=== PATIENT | male | born 1980 | race Caucasian/White ===

== ENCOUNTER 2019-01-26 10:18 | Observation (INO) ==
[2019-01-26 11:03] LABS: BILIRUBIN URINE NEGATIVE (NEGATIVE); BLOOD URINE NEGATIVE (NEGATIVE); CLARITY CLEAR (CLEAR); COLOR YELLOW; GLUCOSE URINE NEGATIVE (NEGATIVE); KETONE URINE NEGATIVE (NEGATIVE); LEUKOCYTES URINE NEGATIVE (NEGATIVE); NITRITE URINE NEGATIVE (NEGATIVE); PROTEIN URINE NEGATIVE (NEGATIVE); SP GRAVITY URINE 1.015; UROBILINOGEN URINE NORMAL
[2019-01-26 11:06] LABS: BASO# 0.01 X1000 (0.0-0.2); BASO% 0.2 % (0.0-0.8); EOS# 0.05 X1000 (0.0-0.7); EOS% 0.9 % (0.0-10.0); HEMATOCRIT 40.1 % (42.0-52.0); HEMOGLOBIN 13.4 g/dL (14.0-18.0); IMM GRAN# 0.01 X1000 (0.0-0.04); IMM GRAN% 0.2 % (0.0-0.5); LYMPH# 0.64 X1000 (1.2-3.4); LYMPH% 11.5 % (20.5-51.1); MCH 29.4 PG (27-31); MCHC 33.4 g/dL (33-37); MCV 87.9 FL (81-99); MONO# 0.49 X1000 (0.11-0.59); MONO% 8.8 % (1.7-9.3); MPV 12.9 FL (7.4-10.4); NEUT# 4.36 X1000 (1.4-6.5); NEUT% 78.4 % (42.2-75.2); PLT 114 X1000 (130-400); RBC 4.56 XMIL (4.7-6.1); RDW 13.3 % (11.5-14.5); WBC 5.56 X1000 (4.8-10.8)
[2019-01-26 11:10] LABS: UR AMPHETAMINES QUAL NONE DETECTED (NONE DETECT); UR BARBITUATES QUAL NONE DETECTED (NONE DETECT); UR BENZODIAZEPIN QUAL NONE DETECTED (NONE DETECT); UR CANNABINOIDS QUAL NONE DETECTED (NONE DETECT); UR COCAINE QUAL NONE DETECTED (NONE DETECT); UR METHADONE QUAL NONE DETECTED (NONE DETECT); UR METHAMPHETAMINE QUAL NONE DETECTED (NONE DETECT); UR OPIATES QUAL NONE DETECTED (NONE DETECT); UR OXYCODONE QUAL NONE DETECTED (NONE DETECT); UR PCP QUAL NONE DETECTED (NONE DETECT); UR PROPOXYPHENE QUAL NONE DETECTED (NONE DETECT); UR TCA QUAL NONE DETECTED (NONE DETECT)
[2019-01-26 11:15] LABS: URINE SOURCE CLEAN CATCH
[2019-01-26 11:16] LABS: URINE BACTERIA 1+ /HFP; URINE EPITHELIAL CELLS <10 /HPF (<10); URINE WBC <10 /HPF (<10)
[2019-01-26 11:17] LABS: AGAP 12; ALBUMIN 4.6 g/dL (3.5-5.0); ALKALINE PHOSPHATASE 75 U/L (32-122); BUN 22 mg/dL (8-22); CALCIUM 7.8 mg/dL (8.8-10.2); CHLORIDE 101 mmol/L (98-107); COSMO 276; CREATININE 0.9 mg/dL (0.7-1.2); ESTIMATED GFR > 60; GLUCOSE 118 mg/dL (70-104); GOT 15 U/L (10-34); GPT 21 U/L (10-44); POTASSIUM 4.3 mmol/L (3.5-5.1); SODIUM 136 mmol/L (136-145); TCO2 23 mmol/L (25-35); TOTAL PROTEIN 7.5 g/dL (6.3-8.3)
[2019-01-26 11:18] LABS: ACETONE SERUM NEGATIVE (NEGATIVE)
--- NOTE | 2019-01-26 11:20 | Diag Imaging Result Doc PS360 ---
EXAM: CT HEAD W/O CONTRAST HISTORY: 1st seizure in many years TECHNIQUE: Images were obtained from the skull base to vertex without IV contrast as per standard protocol. COMPARISON: None. FINDINGS: There is no evidence for hemorrhage, hydrocephalus, mass effect, or fluid collection. Calvarium is intact. An incidental cleft is noted posterior arch of C1. IMPRESSION: No acute intracranial abnormality is appreciated. This exam was performed using automated exposure control, adjustment of mA or kV according to patient size, and/or use of iterative reconstruction technique. Electronically signed by Zamzam Ramos 01/26/2019 11:18 AM
--- NOTE | 2019-01-26 13:20 | PROVIDER DOCUMENTATION ---
This chart was entered by Scarlet Wiggins Scribe, acting as scribe for Candido Albert MD. HPI-Neurological Disorder - General Chief Complaint: Seizure Stated Complaint: seizure Time Seen by Provider: 01/26/19 10:18 Source: patient, EMS Allergies/Adverse Reactions: Patient Allergies Allergy/AdvReac Type Severity Reaction Status Date / Time No Known Allergies Allergy Verified 03/22/17 13:09 Home Medications: Home Medication List Medication Instructions Recorded Confirmed Last Taken Type Cyclosporine, Modified 03/22/17 Unknown History [Cyclosporine Modified] Losartan/Hydrochlorothiazide 1 tab PO 03/22/17 Unknown History [Losartan-Hctz 100-25 mg Tab] - History of Present Illness-Neuro Nature of Presenting Problem: Patient is a 38 year old male who presents to the ED via EMS with seizure like activity. EMS states patient had a seizure prior to arrival. EMS states patient stated having chest pain that radiated down right arm prior to the seizure activity. Patient states history of seizure but has not had a seizure in "years ". Patient denies taking seizure medication. 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 Patient does not report shortness of breath or headache. Severity: reports: mild Onset/Duration: reports: other (prior to arrival) Timing: reports: improving Context: reports: seizure activity Cognitive Baseline: alert, oriented x3 Gait Baseline: walks without assistance Associated Symptoms: reports: chest pain Similar Symptoms Previously?: No Recently seen or treated by another doctor?: No - Seizure First time to have a seizure?: No Witnessed seizure?: Yes Episode details: reports: unknown duration, unknown number Episode Frequency: rare episodes Review of Systems - Adult - REVIEW OF SYSTEMS - ADULT Constitutional: reports: no symptoms reported Eyes: reports: no symptoms reported Ears, Nose, Mouth & Throat: reports: no symptoms reported Cardiovascular: reports: chest pain. denies: heart murmur, irregular heart rate Respiratory: reports: no symptoms reported Gastrointestinal: reports: no symptoms reported Genitourinary: reports: no symptoms reported Musculoskeletal: reports: no symptoms reported Integumentary: reports: no symptoms reported Neurological: reports: seizure. denies: dizziness/vertigo, headache/migraines, numbness, syncope Psychiatric: reports: no symptoms reported Endocrine: reports: no symptoms reported Hematologic/Lymphatic: reports: no symptoms reported Allergic/Immunologic: reports: no symptoms reported All Other Systems: Reviewed and Negative Past History - Adult - PAST MEDICAL HISTORY-ADULT Review of Records: reports: Nursing Assessment Review, Medications Reviewed, Social history reviewed & non-contributory. Major Childhood Illnesses: reports: denies history Cardiovascular: reports: HTN Respiratory: reports: denies history Gastrointestinal: reports: denies history Obstetrical/Gynecological: reports: denies history Genitourinary: reports: denies history Musculoskeletal: reports: denies history Neurological: reports: Seizures/Epilepsy Psychiatric: reports: denies history Endocrine/Immune: reports: denies history Other Conditions: reports: denies history - PRIOR SURGERIES/PROCEDURES Surgical/Procedure History: reports: reviewed, not pertinent - IMMUNIZATION STATUS Childhood Immunizations: See Nurse Assessment Flu Vaccine: See Nurse Assessment - FAMILY HISTORY Family History: reviewed, not pertinent - SOCIAL HISTORY Smoking: denies Substance Use: denies Physical Exam- Neurological - Physical Exam-Neuro Initial Vital Signs Reviewed: Yes General Appearance: alert, no apparent distress HENMT: normal ENT inspection Head Injury: no evidence of injury Respiratory: chest non-tender, lungs clear, normal breath sounds Cardiovascular: normal peripheral pulses, regular rate, rhythm Abdominal Exam: normal bowel sounds, non tender, soft Extremity: normal inspection firefighter type one Exam: normal hearing, normal speech Neurologic: grossly normal, other (sluggish and post-ictal here 1st 10 min.). negative: facial droop, focal weakness, motor weakness, sensory deficit Integumentary: normal color, normal turgor, warm/dry Psych/Mental Status: normal mood/affect, oriented x 3 - Glascow Coma Scale Best Eye Response: (4) open spontaneously Best Verbal Response: (5) oriented Best Motor Response: (6) obeys commands Total Glascow Score: 15 Progress - PLAN OF CARE/RESULTS Progress/Plan/Lab Results: Vital Signs - 8 hr 01/26/19 10:18 01/26/19 10:25 01/26/19 10:42 Temperature 98.9 F Pulse Rate 80 Respiratory Rate 18 Blood Pressure 178/93 O2 Sat by Pulse Oximetry 100 01/26/19 11:57 01/26/19 12:47 Temperature Pulse Rate 79 74 Respiratory Rate 17 20 Blood Pressure 155/88 141/88 O2 Sat by Pulse Oximetry 97 95 Laboratory Results - last 24 hr 01/26/19 01/26/19 01/26/19 10:40 10:40 10:52 WBC RBC Hgb Hct MCV MCH MCHC RDW Std Deviation Plt Count MPV Immature Gran % (Auto) Neut % (Auto) Lymph % (Auto) [place] % (Auto) Eos % (Auto) Baso % (Auto) Immature Gran # (Auto) Neut # (Auto) Lymph # (Auto) [place] # (Auto) Eos # (Auto) Baso # (Auto) Sodium 136 Potassium 4.3 Chloride 101 Carbon Dioxide 23 L Anion Gap 12 BUN 22 Creatinine 0.9 Estimated GFR/1.73 m2 > 60 BUN/Creatinine Ratio 24 Glucose 118 H Calculated Osmolality 276 Calcium 7.8 L Magnesium Total Bilirubin 0.70 AST 15 ALT 21 Alkaline Phosphatase 75 Troponin T Total Protein 7.5 Albumin 4.6 Globulin 3.0 Albumin/Globulin Ratio 2.0 Plasma Lactate Urine Source CLEAN CATCH Urine Color YELLOW Urine Clarity CLEAR Urine pH 5.0 Ur Specific [place] 1.015 Urine Protein NEGATIVE Urine Ketones NEGATIVE Urine Blood NEGATIVE Urine Nitrite NEGATIVE Urine Bilirubin NEGATIVE Urine Urobilinogen NORMAL Urine Microscopic RBC Not Reportable Urine WBC NEGATIVE Urine Microscopic WBC <10 Ur Epithelial Cells <10 Urine Bacteria 1+ Urine Glucose NEGATIVE Urine Opiates Screen NONE DETECTED Ur Oxycodone Screen NONE DETECTED Urine Methadone Screen NONE DETECTED U Propoxyphene Qual NONE DETECTED Ur Barbituates Screen NONE DETECTED Ur Tricyclics Screen NONE DETECTED Ur Phencyclidine Scrn NONE DETECTED Ur Amphetamines Screen NONE DETECTED U Methamphetamines Scrn NONE DETECTED U Benzodiazepines Scrn NONE DETECTED Urine Cocaine Screen NONE DETECTED U Cannabinoids Screen NONE DETECTED Acetone Level NEGATIVE 01/26/19 01/26/19 01/26/19 10:52 10:52 10:52 WBC 5.56 RBC 4.56 L Hgb 13.4 L Hct 40.1 L MCV 87.9 MCH 29.4 MCHC 33.4 RDW Std Deviation 13.3 Plt Count 114 L MPV 12.9 H Immature Gran % (Auto) 0.2 Neut % (Auto) 78.4 H Lymph % (Auto) 11.5 L [place] % (Auto) 8.8 Eos % (Auto) 0.9 Baso % (Auto) 0.2 Immature Gran # (Auto) 0.01 Neut # (Auto) 4.36 Lymph # (Auto) 0.64 L [place] # (Auto) 0.49 Eos # (Auto) 0.05 Baso # (Auto) 0.01 Sodium Potassium Chloride Carbon Dioxide Anion Gap BUN Creatinine Estimated GFR/1.73 m2 BUN/Creatinine Ratio Glucose Calculated Osmolality Calcium Magnesium 1.7 Total Bilirubin AST ALT Alkaline Phosphatase Troponin T Total Protein Albumin Globulin Albumin/Globulin Ratio Plasma Lactate 1.1 Urine Source Urine Color Urine Clarity Urine pH Ur Specific [place] Urine Protein Urine Ketones Urine Blood Urine Nitrite Urine Bilirubin Urine Urobilinogen Urine Microscopic RBC Urine WBC Urine Microscopic WBC Ur Epithelial Cells Urine Bacteria Urine Glucose Urine Opiates Screen Ur Oxycodone Screen Urine Methadone Screen U Propoxyphene Qual Ur Barbituates Screen Ur Tricyclics Screen Ur Phencyclidine Scrn Ur Amphetamines Screen U Methamphetamines Scrn U Benzodiazepines Scrn Urine Cocaine Screen U Cannabinoids Screen Acetone Level 01/26/19 10:52 WBC RBC Hgb Hct MCV MCH MCHC RDW Std Deviation Plt Count MPV Immature Gran % (Auto) Neut % (Auto) Lymph % (Auto) [place] % (Auto) Eos % (Auto) Baso % (Auto) Immature Gran # (Auto) Neut # (Auto) Lymph # (Auto) [place] # (Auto) Eos # (Auto) Baso # (Auto) Sodium Potassium Chloride Carbon Dioxide Anion Gap BUN Creatinine Estimated GFR/1.73 m2 BUN/Creatinine Ratio Glucose Calculated Osmolality Calcium Magnesium Total Bilirubin AST ALT Alkaline Phosphatase Troponin T < 0.010 Total Protein Albumin Globulin Albumin/Globulin Ratio Plasma Lactate Urine Source Urine Color Urine Clarity Urine pH Ur Specific [place] Urine Protein Urine Ketones Urine Blood Urine Nitrite Urine Bilirubin Urine Urobilinogen Urine Microscopic RBC Urine WBC Urine Microscopic WBC Ur Epithelial Cells Urine Bacteria Urine Glucose Urine Opiates Screen Ur Oxycodone Screen Urine Methadone Screen U Propoxyphene Qual Ur Barbituates Screen Ur Tricyclics Screen Ur Phencyclidine Scrn Ur Amphetamines Screen U Methamphetamines Scrn U Benzodiazepines Scrn Urine Cocaine Screen U Cannabinoids Screen Acetone Level Orders Category Date Time Status Saline Loc NOW Care 01/26/19 10:[address] HEAD W/O CONTRAST [CT] Stat Exams 01/26/19 10:27 Completed ACETONE SERUM [CHEM] Stat Lab 01/26/19 10:52 Completed CBC WITH ELECTRONIC DIFF [HEME] Stat Lab 01/26/19 10:52 Completed COMPREHENSIVE METABOLIC PANEL [CHEM] Stat Lab 01/26/19 10:52 Completed LACTATE, PLASMA [CHEM] Stat Lab 01/26/19 10:52 Completed MAGNESIUM [CHEM] Stat Lab 01/26/19 10:52 Completed TROPONIN T Stat Lab 01/26/19 10:52 Completed URINE DRUG SCREEN PL Stat Lab 01/26/19 10:40 Completed ua [URINALYSIS PL W/POSS RFLX CULT] [URINALYSIS] Stat Lab 01/26/19 10:40 Completed Result Diagrams: 01/26/19 10:52 01/26/19 10:52 - REASSESSMENT Reassessment #1 Time Reassessed: 11:02 Status: other (Dr. Albert spoke with patient's sister. Patient's sister states patient has had a change in his psoriasis medications. Patient's sister states patient's blood pressure has been elevated for the last week. Patient's sister states patient has been taking his blood pressure medications but his pressure has still been elevated. Patient's sister states patient stated having chest pain and right arm tingling this morning before going to work. Patient's coworker states he did witness the seizure and it lasted about 10 to 15 minutes. ) - EKG 1 Time of EKG reading by physician:: 10:22 EKG Read and Signed by:: Candido Albert EKG Interpretation (*Must complete 3 of following elements*): Abnormal ( nonspecific T wave abnormality.) Rate: 81 Rhythm: normal sinus rhythm Comments: minimal voltage criteria for LVH, may be normal variant; - CT/MRI 1 CT Study: Head Impression: See EMR Report ( EXAM: CT HEAD W/O CONTRAST HISTORY: 1st seizure in many years TECHNIQUE: Images were obtained from the skull base to vertex without IV contrast as per standard protocol. COMPARISON: None. FINDINGS: There is no evidence for hemorrhage, hydrocephalus, mass effect, or fluid collection. Calvarium is intact. An incidental cleft is noted posterior arch of C1. IMPRESSION: No acute intracranial abnormality is appreciated. This exam was performed using automated exposure control, adjustment of mA or kV according to patient size, and/or use of iterative reconstruction technique. Electronically signed by Zamzam Ramos 01/26/2019 11:18 AM 01/26/19 1118 Interpreting Physician: Zamzam Ramos MD Dictated Date/Time: 01/26/19 1116 cc: Candido Albert MD; Vane Shah MD) - CONSULTS/PCP/HOSPITALIST Notification #1 *Consult/PCP/Hospitalist*: Dr. Traore Time Discussed: 13:08 Reason/Comments: Dr. Albert consulted with Dr. Traore about patient. Consult Disposition: Will see in ED, Admit Departure - Departure Date of Disposition Decision: 01/26/19 Time of Disposition Decision: 13:09 DIAGNOSIS: Seizure, Chest pain, Hypertension Disposition: ADMITTED INPATIENT 09 Certified Medical Emergency: Emergent Condition: Stable Referrals and Follow-Ups: Vane Shah MD [Primary Care Provider] - - Critical Care Note This patient required my direct & personal management of CC.: No Attestation - Physician/ AVIS Attestation The physician spent face to face time with patient:: Yes Advanced Practice Provider documentation review:: Supervising physician onsite and consulted in the evaluation and care of this patient. The physician did have a face to face encounter with the patient. - NIH Stroke Scale Level of Consciousness: 0-Alert LOC Questions (ask month and age): 0-Answers Both Correctly LOC Commands (ask to open & close eyes;make a fist, let go): 0-Obeys Both Correctly Best Gaze (horizontal eye movement): 0-Normal Visual (use finger movement, counting or visual threat): 0-No Visual Loss Facial Palsy (show teeth or raise eyebrows & close eyes tght: 0-Symmetrical Movement Motor Function-left arm: 0-Normal Motor Function-right arm: 0-Normal Motor Function-left le-Normal Motor Function-right le-Normal Limb Ataxia(pflmcm-[id number], or heel to cortes): 0-No Ataxia Sensory(pin prick to face,arms,trunk,legs-compare side/side): 0-No Ataxia Best Language(name item/read sentence.Ex-Down to Earth): 0-No Aphasia Dysarthria(Pt read words or say words Ex.Mama,Tip-Top,Thanks: 0-Normal Articulation Extinction and Inattention: 0-Normal NIH Total Score: 1 This chart was documented by the indicated scribe, (Scarlet Wiggins, Angela) and accurately reflects the services I performed and decisions made by me, Candido Albert MD, as attested by the provider's signature.
[2019-01-26] MEDS ORDERED: NS 1,000 ML IV ONE (14:46)
[2019-01-26 15:54] LABS: CK INDEX 1.1 (0.0-2.5); CK-MB 2.95 ng/mL (0.0-5.0)
[2019-01-26] MEDS: GLUCOPHAGE PO SCH ×2 (15:55→16:43)
--- NOTE | 2019-01-26 17:30 | Diag Imaging Result Doc PS360 ---
EXAM: MRI BRAIN W/WO CONTRAST HISTORY: seizure TECHNIQUE: Routine MR brain with and without contrast. COMPARISON: None. FINDINGS: There are no extra-axial collections. There is no abnormal signal within the brainstem, cerebellum, or cerebral hemispheres except for a small T2 hyperintensity with left thalamus. The paranasal sinuses are clear. Diffusion images show no evidence for acute infarct. Susceptibility images show no evidence for hemorrhage. There are no abnormal regions of contrast enhancement. IMPRESSION: No acute intracranial abnormalities. Electronically signed by Zamzam Ramos 01/26/2019 5:27 PM
[2019-01-26] MEDS ORDERED: ATIVAN IV PRN (18:19)
--- NOTE | 2019-01-26 20:03 | HISTORY AND PHYSICAL ---
PRIMARY CARE PHYSICIAN: Dr. Vane Santos. CHIEF COMPLAINT: Chest pain radiating down his right arm for the past 2 weeks, with some elevation in his blood pressure and also had a witnessed seizure at work today. HISTORY OF PRESENTING ILLNESS: This is a 38-year-old male who presents to [facility] ER via EMS, after he had a witnessed seizure at his job today which is at a local [employer]. According to a coworker, he began having shaking and was lowered to the floor, and the seizure lasted about 10 to 15 minutes. The patient is alert and awake at this time. He states that he has been having some intermittent chest pain over the past couple of weeks, with some elevation in his blood pressure. He has seen his primary care physician recently, with some adjustments made to his blood pressure medication. He states the chest pain radiated to his right arm, with some associated shortness of breath. He has had a history of seizures in the past but has not had a seizure in many years and is not currently on any medications for seizures. When he arrived, his blood pressure was 178/93. His laboratory data was fairly unremarkable. His first troponin was negative. His urine drug screen was negative. Acetone level was negative. Urinalysis was negative. CT of the head showed no acute intracranial abnormality appreciated. He will be admitted for further evaluation and treatment. PAST MEDICAL HISTORY: Hypertension, panic attacks, seizures, psoriasis, hyperlipidemia and diabetes type 2. 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 FAMILY HISTORY: Reviewed and noncontributory. SOCIAL HISTORY: Currently lives with family. Denies any tobacco, alcohol or illicit drug use. ALLERGIES: He has no known drug allergies. HOME MEDICATIONS: 1. We will hold his vitamin D 50,000 units p.o. every 7 days. 2. We will continue his Otezla 30 mg p.o. b.i.d. 3. Betamethasone cream topically b.i.d. 4. Cyclosporine 25 mg 4 capsules p.o. b.i.d. 5. Cozaar 25 mg p.o. daily. 6. Metformin 500 mg p.o. b.i.d. 7. Lopressor 50 mg p.o. at bedtime. 8. Niacin 500 mg p.o. at bedtime. LABORATORY DATA: White blood cell count of 5.56, hemoglobin 13.4, hematocrit 40.1, platelets 114,000. Sodium 136, potassium 4.3, chloride 101, CO2 is 23, BUN 22, creatinine 0.9, glucose 118, magnesium 1.7. Troponin less than 0.010. Plasma lactate 1.1. Urinalysis with 1+ bacteria, but otherwise negative. Urine drug screen negative. Acetone level negative. DIAGNOSTIC DATA: CT of the head showed no acute intracranial abnormality appreciated. REVIEW OF SYSTEMS: He denied any fever, chills, blurred vision or dizziness. He has had chest pain that radiated to his right arm that has been intermittent. Denied any shortness of breath, abdominal pain, constipation, diarrhea, burning or hurting with urination. PHYSICAL EXAMINATION: VITAL SIGNS: Temperature 98.9 degrees, pulse 80, respirations 18, blood pressure 178/93, saturating 100% on room air. GENERAL: This is a 38-year-old male who is sitting up in the bed and answers questions appropriately. HEENT: Normocephalic, atraumatic. Normal ENT inspection. Oropharynx and nares are clear. Eyes: Pupils are equal, round, reactive to light and accommodation. Extraocular movements are intact. NECK: Normal inspection. Normal range of motion. LUNGS: Clear to auscultation bilaterally, with equal lung expansion and chest wall movement. HEART: Regular rate and rhythm. No murmurs, rubs or gallops. ABDOMEN: Soft, nontender, nondistended. Bowel sounds are present x4 quadrants. MUSCULOSKELETAL: He has 5/5 strength x4 extremities. NEUROLOGIC: The cranial nerves 2-12 are grossly intact. It is noted that he was sluggish and postictal when he arrived to the emergency room for about the first 10 minutes, but since then has been alert and oriented to person, place and time, and answering questions appropriately. ASSESSMENT: 1. Chest pain. 2. Seizure, witnessed. 3. Hypertension. 4. Diabetes type 2. PLAN: He is being admitted to the medical unit, placed on telemetry. Diabetic diet. We are going to check an echocardiogram, consult Neurology, do serial cardiac enzymes. Continue his home medications, place on normal saline at KVO. Further orders after being seen by attending and home care consultant. Dictated by TOMASA Contreras for Ruben Traore MD cc: TOMASA Contreras MD Martha Read
[2019-01-26] MEDS ORDERED: PROPYLENE GLYC TD SCH (21:00)
[2019-01-26] MEDS ORDERED: [UNRECOGNIZED DRUG - OTHER] TD SCH (21:00)
[2019-01-26] MEDS ORDERED: APREMILAST PO SCH (21:00)
[2019-01-26] MEDS ORDERED: NIASPAN PO SCH (21:00)
[2019-01-26] MEDS ORDERED: BETAMETHASONE TD SCH (21:00)
[2019-01-26] MEDS ORDERED: LOPRESSOR PO SCH (21:00)
[2019-01-26] MEDS: KEPPRA PO SCH (21:10)
[2019-01-26] MEDS: NS 1,000 ML IV SCH (21:11)
[2019-01-26] MEDS: HUMULIN R (PARKWAY) SUBQ SCH (21:12)
--- NOTE | 2019-01-26 22:27 | HISTORY AND PHYSICAL ---
This is a young gentleman who came in with a seizure. It sounds like a generalized tonic-colonic seizure. He has not had any seizures for several years reportedly 2005. He does have a seizure history but they have taken him off seizure medicines and stopped it completely by report or he has been cleared. 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 He is diabetic and seizure disorder. He has been followed by certified pediatric nurse practitioner but now he has no other issues. The patient is stable otherwise. He is overall no major issues since then. PLAN: Seizure disorder. I am going to pursue a neuro consult if available. I will initiate Keppra, this is 1-time episode but he has had seizure disorder before. MRI was clear. Head CT was clear. May be discharged if there is no other issues. For chest pain which is atypical we will get a echocardiogram and do serial cardiac enzymes and follow. We will continue to follow very closely. Diabetes I think is overall well managed. We will continue fluids and monitor closely. cc: Ruben Traore MD
[2019-01-27 00:07] LABS: CK-MB 2.62 ng/mL (0.0-5.0)
[2019-01-27] MEDS: NS 1,000 ML IV SCH (05:45)
[2019-01-27] MEDS ORDERED: PATIENT'S OWN MED PO SCH (06:13)
[2019-01-27] MEDS ORDERED: PATIENT'S OWN MED TD SCH (06:15)
[2019-01-27 07:16] LABS: BASO# 0.01 X1000 (0.0-0.2); BASO% 0.2 % (0.0-0.8); EOS# 0.08 X1000 (0.0-0.7); EOS% 1.3 % (0.0-10.0); HEMATOCRIT 39.6 % (42.0-52.0); HEMOGLOBIN 13.1 g/dL (14.0-18.0); IMM GRAN# 0.01 X1000 (0.0-0.04); IMM GRAN% 0.2 % (0.0-0.5); LYMPH# 1.04 X1000 (1.2-3.4); LYMPH% 16.4 % (20.5-51.1); MCH 29.2 PG (27-31); MCHC 33.1 g/dL (33-37); MCV 88.2 FL (81-99); MONO# 0.68 X1000 (0.11-0.59); MONO% 10.7 % (1.7-9.3); NEUT# 4.52 X1000 (1.4-6.5); NEUT% 71.2 % (42.2-75.2); PLT 123 X1000 (130-400); RBC 4.49 XMIL (4.7-6.1); RDW 13.4 % (11.5-14.5); WBC 6.34 X1000 (4.8-10.8)
[2019-01-27] MEDS: HUMULIN R (PARKWAY) SUBQ SCH ×3 (07:22→18:21)
[2019-01-27] MEDS: PATIENT'S OWN MED PO SCH ×2 (07:23→09:02)
[2019-01-27 07:37] LABS: HEMOGLOBIN A1C 5.4 % (4.8-6.0)
[2019-01-27 07:39] LABS: AGAP 13; BUN 20 mg/dL (8-22); CALCIUM 7.8 mg/dL (8.8-10.2); CHLORIDE 103 mmol/L (98-107); COSMO 280; CREATININE 0.9 mg/dL (0.7-1.2); ESTIMATED GFR > 60; GLUCOSE 123 mg/dL (70-104); POTASSIUM 4.3 mmol/L (3.5-5.1); SODIUM 138 mmol/L (136-145); TCO2 22 mmol/L (25-35)
[2019-01-27 08:03] LABS: CK-MB 2.31 ng/mL (0.0-5.0)
[2019-01-27] MEDS ORDERED: COZAAR PO SCH (09:00)
[2019-01-27] MEDS: GLUCOPHAGE PO SCH ×2 (09:02→18:22)
[2019-01-27] MEDS: KEPPRA PO SCH (09:02)
--- NOTE | 2019-01-27 13:16 | ECHO REPORT ---
ORDER DATE: 01/26/2019 INTERPRETING PHYSICIAN: Dr. Levine REQUESTING PHYSICIAN: CLINICAL INDICATIONS: This is a 38-year-old male with prior coarctation of the aorta repair and ventriculoseptal defect repair. Reason for study is seizure, chest pain. M-MODE MEASUREMENTS: Right ventricle: cm. Left ventricle end diastole: 4.5 cm. Left ventricle end systole: 2.8 cm. Posterior wall: 1.1 cm. Interventricular septum: 1.1 cm. Left atrium: 3.7 cm. Aortic root: 4.0 cm. SUMMARY OF 2-DIMENSIONAL IMAGIN. Left ventricular systolic function is normal. Ejection fraction is estimated at 61%. No wall motion abnormality is noted. 2. Aortic valve shows some sclerosis of the cusps. There is a mild to moderate degree of aortic regurgitation. I do not believe there is aortic stenosis. The valve may be bicuspid. I cannot confirm or rule that out. Color flow mapping shows mild to moderate degree of aortic regurgitation. The maximum gradient across this valve is 22 mmHg, mean gradient is 11 mmHg. That indicates no evidence of any significant aortic stenosis. 3. Pulmonic valve shows mild to moderate degree of regurgitation. 4. Tricuspid valve is unremarkable. 5. The pulmonary pressure is estimated at 22 mmHg. 6. There is no pulmonary hypertension. 7. The mitral valve is unremarkable. Pulse wave Doppler of mitral inflow shows normal E/A ratio. 8. Tissue Doppler of septal and lateral mitral annulus averages 9 cm. 9. Diastolic function is normal. 10.There is no pericardial effusion, mass or thrombus. Clinical correlation recommended. cc: Musa Levine MD
[2019-01-27 16:34] VITALS: BP 158/92
--- NOTE | 2019-01-27 21:32 | DISCHARGE SUMMARY ---
ADMISSION DATE: 01/26/2019 DISCHARGE DATE: 01/27/2019 DISCHARGE DIAGNOSES: 1. Seizure disorder, presumed. 2. Atypical chest pain, with a history of coarctation of the aorta, ventral septal defect repair as a child. HOSPITAL COURSE: Briefly, the patient had a tonic-clonic seizure at work spontaneously. The patient is stable overall. He is doing okay. He had no seizure activity after being admitted. We did initiate him on Keppra. This was a one-time episode, but he had a history of seizures. His MRI was negative. I was unable to obtain an EEG or a Neuro consult, but due to risk factors, I did recommend he start Keppra, which is what I discharged him on. DISCHARGE MEDICATIONS: Otezla 30 b.i.d., betamethasone, cyclosporine 100 b.i.d., vitamin D2 50,000 units, Cozaar 25 daily, metformin 500 b.i.d., Lopressor 50 at bedtime, niacin 500 at bedtime, and Keppra 500 b.i.d. He is to follow up with Neurology, refer that to Dr. Olvera, and follow up with his sparmaker too. cc: Ruben Traore MD
--- NOTE | 2019-01-29 15:11 | EKG Report ---
Test Performed on : 01/26/2019 10:22:10 AM Test Reason : ER Blood Pressure : / mmHG Vent. Rate : 081 BPM Atrial Rate : 081 BPM P-R Int : 136 ms QRS Dur : 088 ms QT Int : 358 ms P-R-T Axes : 025 072 104 degrees QTc Int : 415 ms Normal sinus rhythm. Minimal voltage criteria for LVH, may be normal variant Nonspecific T wave abnormality Abnormal ECG When compared with ECG of 22-MAR-2017 15:27, No significant change was found Unconfirmed Result
== END 2019-01-27 20:14 | disposition home or self-care (01) ==
LOC: P.ED 10:18 → INTOOBSV 10:19 → P.MEDSURG 10:19
PROVIDERS: ATTEND Internal Medicine
CPT/HCPCS: 70450; 70553; 80048; 80053; 80104; 80301; 80305; 81001; 82009; 82550; 82553; 82948; 83036; 83605; 83735; 84484; 85025; 93005; 93306; 95816; 99285; A9270; A9579; G0431; G0434; G0477; J7030; XXXXX